=== PATIENT | male | born 1960 | race Caucasian/White ===

== ENCOUNTER → 2018-03-09 | Outpatient (CLI) | payer OTHER ==
[~2018-03-09] MED LIST: ALIGN4 MG; AUGMENTIN XR1000 MG PO; PERCOCET PO
== END ==
LOC: RAD 11:57
DX: J32.9 Chronic sinusitis, unspecified (principal); R05 Cough

== ENCOUNTER → 2018-03-12 | Outpatient (CLI) | payer OTHER | LOC: CAT 08:55 | DX: J32.9 Chronic sinusitis, unspecified (principal); R05 Cough ==

== ENCOUNTER → 2019-03-25 | Outpatient (CLI) | payer OTHER | LOC: RAD 11:46 | DX: M19.042 Primary osteoarthritis, left hand (principal) ==

== ENCOUNTER → 2020-06-26 | Outpatient (CLI) | payer OTHER | LOC: ULTRA 12:03 | PROVIDERS: ATTEND Nurse Practitioner | DX: N50.3 Cyst of epididymis (principal); N50.89 Other specified disorders of the male genital organs ==